=== PATIENT | female | born 1935 | race Caucasian/White ===

== ENCOUNTER 2021-03-26 07:13 | Observation (INO) | payer MEDICARE ==
[2021-03-26 07:50] VITALS: BMI 19.7
[2021-03-26] MEDS ORDERED: Acetaminophen 325 MG TAB PO PRN (07:54)
[2021-03-26] MEDS: Enoxaparin Sodium 30 MG/0.3 ML SYRINGE SC SCH (09:08)
[2021-03-26] MEDS: Famotidine 20 MG TAB PO SCH (09:10)
[2021-03-26 09:12] LABS: Troponin I Less than 0.010 ng/mL (< 0.028)
[2021-03-26 11:24] LABS: Troponin I Less than 0.010 ng/mL (< 0.028)
[2021-03-26] MEDS: Lisinopril 10 MG TAB PO SCH (20:44)
[2021-03-27 04:25] LABS: #Basophils 0.1 10x3/uL (0.0-0.2); #Eosinphils 0.3 10x3/uL (0.0-0.5); #Monocytes 0.8 10x3/uL (0.0-1.1); #Neutrophils 5.5 10x3/uL (1.5-8.4); %Basophils 0.8 % (0.0-2.0); %Eosinophils 2.7 % (0.0-6.0); %Lymphocytes 26.5 % (18.0-47.0); %Neutrophils 60.8 % (40.0-75.0); Hemoglobin 12.4 g/dL (12.0-15.5); Mean Corpuscular Hemoglobin 29.6 pg (27.0-33.0); Mean Corpuscular Volume 89.7 fl (81.6-98.3); Mean Platelet Volume 10.1 fl (7.4-10.4); Platelet Count 200 10x3/uL (150-450); RBC Distribution Width 12.2 % (11.5-14.5); Red Blood Cell (RBC) Count 4.19 10x6/uL (3.90-5.03); White Blood Cell (WBC) Count 9.1 10x3/uL (3.5-10.5)
[2021-03-27 04:40] LABS: Anion Gap 10 mmol/L (10-20); BUN (Urea Nitrogen) 18 mg/dL (9.8-20.1); Calc. Creatinine Clearance 36 mL/min (70-130); Calcium 8.5 mg/dL (7.8-10.44); Carbon Dioxide 26 mmol/L (23-31); Chloride 110 mmol/L (98-107); Glucose 92 mg/dL (83-110); Potassium 3.9 mmol/L (3.5-5.1); Sodium 142 mmol/L (136-145)
[2021-03-27] MEDS ORDERED: Levothyroxine Sodium 50 MCG TAB PO SCH (06:00)
[2021-03-27] MEDS: Enoxaparin Sodium 30 MG/0.3 ML SYRINGE SC SCH (08:30)
[2021-03-27] MEDS: Lisinopril 10 MG TAB PO SCH (08:30)
[2021-03-27] MEDS: Famotidine 20 MG TAB PO SCH (08:30)
[2021-03-27] MEDS ORDERED: Hydrochlorothiazide 25 MG TAB PO SCH (09:00)
[2021-03-27] MEDS ORDERED: Losartan 25 MG TAB PO SCH (09:00)
[2021-03-27] MEDS ORDERED: [UNRECOGNIZED DRUG - OTHER] PO SCH (09:00)
[2021-03-27] MEDS ORDERED: Aspirin 325 mg Enteric Coated Tablet PO SCH (09:00)
[2021-03-27] MEDS ORDERED: Atorvastatin Calcium 10 MG TAB PO SCH (09:00)
[2021-03-27] MEDS ORDERED: GLUCOSAMINE PO SCH (09:00)
[2021-03-27] MEDS ORDERED: Multivit, Therapeutic 1 TAB PO SCH (09:00)
[2021-03-27 15:13] VITALS: BP 103/55; TEMP 97.5
== END 2021-03-27 15:30 | disposition home or self-care (01) ==
LOC: CSHTELE 07:13
PROVIDERS: ADMIT Family Medicine; ATTEND Internal Medicine
DX: R07.89 Other chest pain (principal); I10 Essential (primary) hypertension; E03.9 Hypothyroidism, unspecified; E78.5 Hyperlipidemia, unspecified; I69.951 Hemiplegia and hemiparesis following unspecified cerebrovascular disease affecting right dominant side; Z79.899 Other long term (current) drug therapy; Z79.82 Long term (current) use of aspirin; Z90.49 Acquired absence of other specified parts of digestive tract
CPT/HCPCS: 80048; 84484; 85025; 93005; 93306; 96372 ×2; 97110; 97116 ×2; 97139; G0378 ×2; 36415; 93010; J1650

== ENCOUNTER 2021-08-29 14:19 | Inpatient (IN) | payer MEDICARE ==
[~2021-08-29 14:19] MED LIST: Iopamidol 300 61% 100 ML VIAL FS ONE
[2021-08-29] MEDS ORDERED: Ondansetron PF 4 MG/2 ML Vial ONE (14:45)
[2021-08-29 15:07] LABS: #Eosinphils 0.1 10x3/uL (0.0-0.5); #Monocytes 1.3 10x3/uL (0.0-1.1); #Neutrophils 11.4 10x3/uL (1.5-8.4); %Basophils 0.2 % (0.0-2.0); %Eosinophils 0.4 % (0.0-6.0); %Lymphocytes 9.6 % (18.0-47.0); %Monocytes 9.3 % (0.0-10.0); %Neutrophils 80.1 % (40.0-75.0); Mean Corpuscular HGB CONC 32.7 g/dL (32.0-36.0); Mean Corpuscular Hemoglobin 29.5 pg (27.0-33.0); Mean Corpuscular Volume 90.1 fl (81.6-98.3); Mean Platelet Volume 9.8 fl (7.4-10.4); Platelet Count 462 10x3/uL (150-450); RBC Distribution Width 12.8 % (11.5-14.5); Red Blood Cell (RBC) Count 4.75 10x6/uL (3.90-5.03); White Blood Cell (WBC) Count 14.2 10x3/uL (3.5-10.5)
[2021-08-29 15:14] LABS: INR-International Normal Ratio 1.1; PTT 25.3 sec (22.0-33.0); Prothrombin Time 12.1 sec (9.5-12.1)
[2021-08-29 15:17] LABS: ALT (SGPT) 13 U/L (8-55); AST (SGOT) 26 U/L (5-34); Albumin 3.8 g/dL (3.4-4.8); Alkaline Phosphatase 102 U/L (40-110); Anion Gap 17 mmol/L (10-20); BUN (Urea Nitrogen) 24 mg/dL (9.8-20.1); Bilirubin, Total 0.7 mg/dL (0.2-1.2); Calc. Creatinine Clearance 0 mL/min (70-130); Calcium 10.1 mg/dL (7.8-10.44); Carbon Dioxide 26 mmol/L (23-31); Chloride 100 mmol/L (98-107); Globulin 3.8 g/dL (2.4-3.5); Glucose 115 mg/dL (83-110); Lipase 40 U/L (8-78); Protein, Total 7.6 g/dL (5.8-8.1); Sodium 139 mmol/L (136-145)
[2021-08-29 15:37] LABS: CKMB 1.7 ng/mL (0-6.6)
[2021-08-29 17:57] LABS: Bilirubin Neg (Negative); Blood, Urine Negative (Negative); Clarity Clear (Clear); Glucose, Urine (Dipstick) Normal (Negative); Ketone, Urine 15 mg/dL (Negative); Leukocyte Negative (Negative); Nitrite Negative (Negative); Protein, Urine (Dipstick) 15 mg/dl (Neg-Trace)
[2021-08-29] MEDS ORDERED: Aspirin Chewable 81 MG TAB ONE (19:21)
[2021-08-29] MEDS ORDERED: Acetaminophen 650 MG Suppository PR PRN (21:18)
[2021-08-29] MEDS ORDERED: Bisacodyl 10 MG SUPP PR PRN (21:18)
[2021-08-29] MEDS ORDERED: Ondansetron PF 4 MG/2 ML Vial IVP PRN (21:18)
[2021-08-29] MEDS ORDERED: Famotidine/PF 20 mg/2ml Vial SLOW IVP SCH (22:45)
[2021-08-29] MEDS ORDERED: Fluconazole In NaCl,Iso-Osm 200 MG in Premix Bag 1 BAG IVPB SCH (22:45)
[2021-08-29] MEDS: Dextrose 5%-Lactated Ringers 1,000 ML IV SCH (23:09)
[2021-08-30 05:16] LABS: #Basophils 0.1 10x3/uL (0.0-0.2); #Eosinphils 0.1 10x3/uL (0.0-0.5); #Neutrophils 8.9 10x3/uL (1.5-8.4); %Basophils 0.5 % (0.0-2.0); %Eosinophils 0.8 % (0.0-6.0); %Lymphocytes 9.6 % (18.0-47.0); %Monocytes 9.1 % (0.0-10.0); %Neutrophils 79.6 % (40.0-75.0); Hemoglobin 12.6 g/dL (12.0-15.5); Mean Corpuscular HGB CONC 33.8 g/dL (32.0-36.0); Mean Corpuscular Hemoglobin 29.9 pg (27.0-33.0); Mean Corpuscular Volume 88.4 fl (81.6-98.3); Mean Platelet Volume 9.5 fl (7.4-10.4); Platelet Count 384 10x3/uL (150-450); RBC Distribution Width 12.8 % (11.5-14.5); Red Blood Cell (RBC) Count 4.22 10x6/uL (3.90-5.03); White Blood Cell (WBC) Count 11.2 10x3/uL (3.5-10.5)
[2021-08-30 05:31] LABS: ALT (SGPT) 11 U/L (8-55); AST (SGOT) 18 U/L (5-34); Alkaline Phosphatase 82 U/L (40-110); Anion Gap 14 mmol/L (10-20); BUN (Urea Nitrogen) 12 mg/dL (9.8-20.1); Bilirubin, Total 0.7 mg/dL (0.2-1.2); Calc. Creatinine Clearance 42 mL/min (70-130); Calcium 8.8 mg/dL (7.8-10.44); Carbon Dioxide 27 mmol/L (23-31); Chloride 105 mmol/L (98-107); Glucose 132 mg/dL (83-110); Potassium 3.2 mmol/L (3.5-5.1); Sodium 143 mmol/L (136-145)
[2021-08-30] MEDS ORDERED: Aspirin 81 mg Enteric Coated Tablet PO SCH (09:00)
[2021-08-30] MEDS ORDERED: Potassium Chloride 10 MEQ in Premix Bag 1 BAG IVPB SCH ×2 (09:00→09:15)
[2021-08-30] MEDS ORDERED: Iopamidol 300 61% 100 ML VIAL FS ONE (09:42)
[2021-08-30] MEDS: Fluticasone Propionate Nasal Spray 16 gm Bottle NASAL SCH (10:33)
[2021-08-30] MEDS: Enoxaparin Sodium 40 MG/0.4 ML SYRINGE SC SCH (10:35)
[2021-08-30] MEDS: Dextrose 5%-Lactated Ringers 1,000 ML IV SCH (12:55)
[2021-08-30] MEDS: Metoprolol Tartrate 5 MG/5 ML VIAL IVP SCH ×2 (14:18→21:35)
[2021-08-30 14:24] LABS: Anion Gap 11 mmol/L (10-20); BUN (Urea Nitrogen) 8 mg/dL (9.8-20.1); Calc. Creatinine Clearance 43 mL/min (70-130); Calcium 8.8 mg/dL (7.8-10.44); Carbon Dioxide 29 mmol/L (23-31); Chloride 103 mmol/L (98-107); Glucose 126 mg/dL (83-110); Potassium 3.4 mmol/L (3.5-5.1); Sodium 140 mmol/L (136-145)
[2021-08-30 15:54] LABS: SARS-CoV-2 PCR by NAA Not Detected (NotDetected)
[2021-08-30] MEDS ORDERED: Piperacillin/Tazobactam 3.375 GM in Sodium Chloride 0.9% 100 ML IVPB SCH ×2 (19:45→20:00)
[2021-08-30] MEDS ORDERED: Famotidine/PF 20 mg/2ml Vial SLOW IVP SCH (21:00)
[2021-08-30] MEDS: Pantoprazole 40 MG VIAL IVP SCH (21:35)
[2021-08-31] MEDS: Piperacillin/Tazobactam 3.375 GM in Sodium Chloride 0.9% 100 ML IVPB SCH ×3 (01:21→18:22)
[2021-08-31 05:41] LABS: Anion Gap 15 mmol/L (10-20); BUN (Urea Nitrogen) 6 mg/dL (9.8-20.1); Calc. Creatinine Clearance 45 mL/min (70-130); Calcium 8.5 mg/dL (7.8-10.44); Carbon Dioxide 27 mmol/L (23-31); Chloride 101 mmol/L (98-107); Glucose 100 mg/dL (83-110); Potassium 3.1 mmol/L (3.5-5.1); Sodium 140 mmol/L (136-145)
[2021-08-31 06:02] LABS: #Basophils 0.1 10x3/uL (0.0-0.2); #Eosinphils 0.3 10x3/uL (0.0-0.5); #Monocytes 0.7 10x3/uL (0.0-1.1); #Neutrophils 6.1 10x3/uL (1.5-8.4); %Basophils 0.7 % (0.0-2.0); %Eosinophils 3.8 % (0.0-6.0); %Lymphocytes 13.5 % (18.0-47.0); %Monocytes 8.4 % (0.0-10.0); Hemoglobin 12.1 g/dL (12.0-15.5); Mean Corpuscular HGB CONC 33.6 g/dL (32.0-36.0); Mean Corpuscular Hemoglobin 29.3 pg (27.0-33.0); Mean Corpuscular Volume 87.2 fl (81.6-98.3); Mean Platelet Volume 9.7 fl (7.4-10.4); Platelet Count 375 10x3/uL (150-450); RBC Distribution Width 12.5 % (11.5-14.5); Red Blood Cell (RBC) Count 4.13 10x6/uL (3.90-5.03); White Blood Cell (WBC) Count 8.4 10x3/uL (3.5-10.5)
[2021-08-31] MEDS: Enoxaparin Sodium 40 MG/0.4 ML SYRINGE SC SCH (10:28)
[2021-08-31] MEDS: Fluticasone Propionate Nasal Spray 16 gm Bottle NASAL SCH (10:28)
[2021-08-31] MEDS: Fluconazole In NaCl,Iso-Osm 100 MG in Premix Bag 1 BAG IVPB SCH (10:34)
[2021-08-31] MEDS: Pantoprazole 40 MG VIAL IVP SCH ×2 (10:39→20:52)
[2021-08-31] MEDS: Metoprolol Tartrate 5 MG/5 ML VIAL IVP SCH ×2 (10:39→20:52)
[2021-09-01] MEDS: Piperacillin/Tazobactam 3.375 GM in Sodium Chloride 0.9% 100 ML IVPB SCH ×4 (00:04→23:49)
[2021-09-01 05:35] LABS: #Basophils 0.1 10x3/uL (0.0-0.2); #Eosinphils 0.3 10x3/uL (0.0-0.5); #Monocytes 0.6 10x3/uL (0.0-1.1); #Neutrophils 4.4 10x3/uL (1.5-8.4); %Basophils 1.2 % (0.0-2.0); %Eosinophils 4.5 % (0.0-6.0); %Lymphocytes 20.1 % (18.0-47.0); %Monocytes 8.2 % (0.0-10.0); %Neutrophils 65.4 % (40.0-75.0); Hemoglobin 12.5 g/dL (12.0-15.5); Mean Corpuscular HGB CONC 34.1 g/dL (32.0-36.0); Mean Corpuscular Hemoglobin 29.6 pg (27.0-33.0); Mean Corpuscular Volume 86.8 fl (81.6-98.3); Mean Platelet Volume 9.4 fl (7.4-10.4); Platelet Count 346 10x3/uL (150-450); RBC Distribution Width 12.5 % (11.5-14.5); Red Blood Cell (RBC) Count 4.23 10x6/uL (3.90-5.03); White Blood Cell (WBC) Count 6.7 10x3/uL (3.5-10.5)
[2021-09-01 05:47] LABS: Anion Gap 15 mmol/L (10-20); BUN (Urea Nitrogen) 5 mg/dL (9.8-20.1); Calc. Creatinine Clearance 42 mL/min (70-130); Calcium 8.7 mg/dL (7.8-10.44); Carbon Dioxide 27 mmol/L (23-31); Chloride 103 mmol/L (98-107); Glucose 83 mg/dL (83-110); Sodium 142 mmol/L (136-145)
[2021-09-01] MEDS: Fluticasone Propionate Nasal Spray 16 gm Bottle NASAL SCH (08:08)
[2021-09-01] MEDS: Enoxaparin Sodium 40 MG/0.4 ML SYRINGE SC SCH (08:11)
[2021-09-01] MEDS: Pantoprazole 40 MG VIAL IVP SCH ×2 (08:15→20:42)
[2021-09-01] MEDS: Metoprolol Tartrate 5 MG/5 ML VIAL IVP SCH ×2 (08:15→20:42)
[2021-09-01] MEDS: Fluconazole In NaCl,Iso-Osm 100 MG in Premix Bag 1 BAG IVPB SCH (08:29)
[2021-09-02] MEDS ORDERED: Potassium Chloride 20 MEQ in Premix Bag 1 BAG IVPB SCH ×2 (08:15→17:00)
[2021-09-02] MEDS ORDERED: Potassium Chloride 10 MEQ in Premix Bag 1 BAG IVPB SCH (08:30)
[2021-09-02] MEDS: Fluconazole In NaCl,Iso-Osm 100 MG in Premix Bag 1 BAG IVPB SCH (08:51)
[2021-09-02] MEDS: Enoxaparin Sodium 40 MG/0.4 ML SYRINGE SC SCH (09:02)
[2021-09-02] MEDS: Pantoprazole 40 MG VIAL IVP SCH ×2 (09:02→20:26)
[2021-09-02] MEDS: Fluticasone Propionate Nasal Spray 16 gm Bottle NASAL SCH (09:03)
[2021-09-02] MEDS: Metoprolol Tartrate 5 MG/5 ML VIAL IVP SCH ×2 (09:03→20:25)
[2021-09-02] MEDS: Piperacillin/Tazobactam 3.375 GM in Sodium Chloride 0.9% 100 ML IVPB SCH ×2 (10:44→18:20)
[2021-09-02] MEDS ORDERED: Aspirin 325 mg Enteric Coated Tablet PO SCH (15:30)
[2021-09-02] MEDS ORDERED: Multivit, Therapeutic 1 TAB PO SCH (15:45)
[2021-09-02] MEDS ORDERED: Atorvastatin Calcium 10 MG TAB PO SCH (15:45)
[2021-09-02] MEDS ORDERED: Levothyroxine Sodium 50 MCG TAB PO SCH (15:45)
[2021-09-02 16:47] LABS: Bilirubin Neg (Negative); Blood, Urine Negative (Negative); Clarity Clear (Clear); Glucose, Urine (Dipstick) Normal (Negative); Ketone, Urine 15 mg/dL (Negative); Leukocyte Negative (Negative); Nitrite Negative (Negative); Protein, Urine (Dipstick) Negative (Neg-Trace); Urobilinogen Normal mg/dL (Less than 2)
[2021-09-02 17:07] LABS: RBC/HPF 0-3 HPF (0-3); Squamous Epithelial None Seen HPF (0-3); WBC/HPF None Seen HPF (0-3)
[2021-09-02 17:08] LABS: Bacteria/HPF Rare-Few HPF (None Seen)
[2021-09-02] MEDS: Multivit, Therapeutic 1 TAB PO SCH (17:12)
[2021-09-02] MEDS: Lisinopril 10 MG TAB PO SCH (20:25)
[2021-09-03] MEDS ORDERED: Piperacillin/Tazobactam 3.375 GM VIAL ONE (02:03)
[2021-09-03] MEDS ORDERED: Sodium Chloride 0.9% 100 ML ONE (02:03)
[2021-09-03] MEDS: Piperacillin/Tazobactam 3.375 GM in Sodium Chloride 0.9% 100 ML IVPB SCH ×4 (02:09→23:55)
[2021-09-03 05:33] LABS: Anion Gap 14 mmol/L (10-20); BUN (Urea Nitrogen) Less than 4 mg/dL (9.8-20.1); Calc. Creatinine Clearance 41 mL/min (70-130); Calcium 8.5 mg/dL (7.8-10.44); Carbon Dioxide 28 mmol/L (23-31); Chloride 104 mmol/L (98-107); Glucose 91 mg/dL (83-110); Sodium 143 mmol/L (136-145)
[2021-09-03 05:38] LABS: Potassium 2.9 mmol/L (3.5-5.1)
[2021-09-03 05:41] LABS: #Basophils 0.1 10x3/uL (0.0-0.2); #Eosinphils 0.4 10x3/uL (0.0-0.5); #Monocytes 0.7 10x3/uL (0.0-1.1); #Neutrophils 4.8 10x3/uL (1.5-8.4); %Basophils 0.7 % (0.0-2.0); %Eosinophils 4.9 % (0.0-6.0); %Monocytes 8.7 % (0.0-10.0); %Neutrophils 62.9 % (40.0-75.0); Hemoglobin 12.4 g/dL (12.0-15.5); Mean Corpuscular HGB CONC 33.8 g/dL (32.0-36.0); Mean Corpuscular Hemoglobin 29.2 pg (27.0-33.0); Mean Corpuscular Volume 86.4 fl (81.6-98.3); Mean Platelet Volume 9.5 fl (7.4-10.4); Platelet Count 341 10x3/uL (150-450); RBC Distribution Width 12.7 % (11.5-14.5); Red Blood Cell (RBC) Count 4.25 10x6/uL (3.90-5.03); White Blood Cell (WBC) Count 7.6 10x3/uL (3.5-10.5)
[2021-09-03] MEDS: Levothyroxine Sodium 50 MCG TAB PO SCH (06:25)
[2021-09-03] MEDS ORDERED: Potassium Chloride 20 MEQ in Premix Bag 1 BAG IVPB SCH (08:00)
[2021-09-03] MEDS ORDERED: [UNRECOGNIZED DRUG - OTHER] PO SCH (09:00)
[2021-09-03] MEDS: Atorvastatin Calcium 10 MG TAB PO SCH (09:15)
[2021-09-03] MEDS: Aspirin 325 mg Enteric Coated Tablet PO SCH (09:15)
[2021-09-03] MEDS: Metoprolol Tartrate 5 MG/5 ML VIAL IVP SCH ×2 (09:16→21:07)
[2021-09-03] MEDS: Fluticasone Propionate Nasal Spray 16 gm Bottle NASAL SCH (09:16)
[2021-09-03] MEDS: Multivit, Therapeutic 1 TAB PO SCH (09:16)
[2021-09-03] MEDS: Pantoprazole 40 MG VIAL IVP SCH ×2 (09:17→21:07)
[2021-09-03] MEDS: Lisinopril 10 MG TAB PO SCH ×2 (09:17→21:06)
[2021-09-03] MEDS: Enoxaparin Sodium 40 MG/0.4 ML SYRINGE SC SCH (09:17)
[2021-09-03] MEDS: Fluconazole In NaCl,Iso-Osm 100 MG in Premix Bag 1 BAG IVPB SCH (09:18)
[2021-09-03] MEDS: Potassium Chloride 20 MEQ in Premix Bag 1 BAG IVPB SCH ×2 (11:11→13:03)
[2021-09-04] MEDS: Levothyroxine Sodium 50 MCG TAB PO SCH (05:02)
[2021-09-04 05:24] LABS: #Basophils 0.1 10x3/uL (0.0-0.2); #Eosinphils 0.3 10x3/uL (0.0-0.5); #Monocytes 0.6 10x3/uL (0.0-1.1); #Neutrophils 6.9 10x3/uL (1.5-8.4); %Basophils 0.8 % (0.0-2.0); %Lymphocytes 16.2 % (18.0-47.0); %Monocytes 6.8 % (0.0-10.0); %Neutrophils 72.5 % (40.0-75.0); Hemoglobin 13.2 g/dL (12.0-15.5); Mean Corpuscular HGB CONC 33.6 g/dL (32.0-36.0); Mean Corpuscular Hemoglobin 29.2 pg (27.0-33.0); Mean Corpuscular Volume 86.9 fl (81.6-98.3); Mean Platelet Volume 9.4 fl (7.4-10.4); Platelet Count 314 10x3/uL (150-450); Red Blood Cell (RBC) Count 4.52 10x6/uL (3.90-5.03); White Blood Cell (WBC) Count 9.5 10x3/uL (3.5-10.5)
[2021-09-04 05:51] LABS: Anion Gap 16 mmol/L (10-20); BUN (Urea Nitrogen) Less than 4 mg/dL (9.8-20.1); Calc. Creatinine Clearance 35 mL/min (70-130); Calcium 8.8 mg/dL (7.8-10.44); Carbon Dioxide 25 mmol/L (23-31); Chloride 103 mmol/L (98-107); Glucose 80 mg/dL (83-110); Potassium 3.3 mmol/L (3.5-5.1); Sodium 141 mmol/L (136-145)
[2021-09-04] MEDS: Piperacillin/Tazobactam 3.375 GM in Sodium Chloride 0.9% 100 ML IVPB SCH ×3 (09:12→23:38)
[2021-09-04] MEDS: Atorvastatin Calcium 10 MG TAB PO SCH (09:17)
[2021-09-04] MEDS: Lisinopril 10 MG TAB PO SCH ×2 (09:17→20:53)
[2021-09-04] MEDS: Enoxaparin Sodium 40 MG/0.4 ML SYRINGE SC SCH (09:17)
[2021-09-04] MEDS: Pantoprazole 40 MG VIAL IVP SCH ×2 (09:17→20:53)
[2021-09-04] MEDS: Multivit, Therapeutic 1 TAB PO SCH (09:17)
[2021-09-04] MEDS: Metoprolol Tartrate 5 MG/5 ML VIAL IVP SCH (09:17)
[2021-09-04] MEDS: Aspirin 325 mg Enteric Coated Tablet PO SCH (09:17)
[2021-09-04] MEDS: Fluconazole In NaCl,Iso-Osm 100 MG in Premix Bag 1 BAG IVPB SCH (10:06)
[2021-09-04] MEDS: Fluticasone Propionate Nasal Spray 16 gm Bottle NASAL SCH (10:07)
[2021-09-04] MEDS: Metoprolol Tartrate 25 MG TAB PO SCH (20:53)
[2021-09-05 03:48] LABS: #Basophils 0.1 10x3/uL (0.0-0.2); #Eosinphils 0.4 10x3/uL (0.0-0.5); #Monocytes 0.7 10x3/uL (0.0-1.1); #Neutrophils 5.2 10x3/uL (1.5-8.4); %Basophils 0.9 % (0.0-2.0); %Lymphocytes 20.4 % (18.0-47.0); %Monocytes 8.2 % (0.0-10.0); %Neutrophils 64.5 % (40.0-75.0); Hemoglobin 12.5 g/dL (12.0-15.5); Mean Corpuscular HGB CONC 33.2 g/dL (32.0-36.0); Mean Corpuscular Hemoglobin 28.5 pg (27.0-33.0); Mean Corpuscular Volume 85.9 fl (81.6-98.3); Mean Platelet Volume 9.3 fl (7.4-10.4); Platelet Count 287 10x3/uL (150-450); Red Blood Cell (RBC) Count 4.39 10x6/uL (3.90-5.03); White Blood Cell (WBC) Count 8.1 10x3/uL (3.5-10.5)
[2021-09-05 03:57] LABS: Anion Gap 14 mmol/L (10-20); BUN (Urea Nitrogen) Less than 4 mg/dL (9.8-20.1); Calc. Creatinine Clearance 37 mL/min (70-130); Calcium 8.6 mg/dL (7.8-10.44); Carbon Dioxide 26 mmol/L (23-31); Chloride 105 mmol/L (98-107); Glucose 96 mg/dL (83-110); Sodium 142 mmol/L (136-145)
[2021-09-05 04:07] LABS: Potassium 2.6 mmol/L (3.5-5.1)
[2021-09-05] MEDS: Levothyroxine Sodium 50 MCG TAB PO SCH (05:44)
[2021-09-05] MEDS ORDERED: Potassium Chloride 20 MEQ TAB PO SCH (05:45)
[2021-09-05] MEDS: Fluconazole In NaCl,Iso-Osm 100 MG in Premix Bag 1 BAG IVPB SCH (09:00)
[2021-09-05] MEDS: Piperacillin/Tazobactam 3.375 GM in Sodium Chloride 0.9% 100 ML IVPB SCH ×3 (09:00→23:56)
[2021-09-05] MEDS: Enoxaparin Sodium 30 MG/0.3 ML SYRINGE SC SCH (09:00)
[2021-09-05] MEDS: Pantoprazole 40 MG VIAL IVP SCH ×2 (09:00→21:35)
[2021-09-05] MEDS: Metoprolol Tartrate 25 MG TAB PO SCH ×2 (09:01→21:35)
[2021-09-05] MEDS: Aspirin 325 mg Enteric Coated Tablet PO SCH (09:01)
[2021-09-05] MEDS: Multivit, Therapeutic 1 TAB PO SCH (09:01)
[2021-09-05] MEDS: Lisinopril 10 MG TAB PO SCH ×2 (09:01→21:34)
[2021-09-05] MEDS: Atorvastatin Calcium 10 MG TAB PO SCH (09:01)
[2021-09-05] MEDS: Fluticasone Propionate Nasal Spray 16 gm Bottle NASAL SCH (13:23)
[2021-09-05] MEDS: Potassium Chloride 20 MEQ TAB PO SCH ×2 (13:24→17:24)
[2021-09-06 04:35] LABS: #Basophils 0.1 10x3/uL (0.0-0.2); #Eosinphils 0.4 10x3/uL (0.0-0.5); #Monocytes 0.7 10x3/uL (0.0-1.1); #Neutrophils 4.6 10x3/uL (1.5-8.4); %Basophils 0.9 % (0.0-2.0); %Eosinophils 4.4 % (0.0-6.0); %Lymphocytes 27.2 % (18.0-47.0); %Monocytes 8.6 % (0.0-10.0); %Neutrophils 58.3 % (40.0-75.0); Hemoglobin 12.4 g/dL (12.0-15.5); Mean Corpuscular HGB CONC 33.8 g/dL (32.0-36.0); Mean Corpuscular Hemoglobin 29.3 pg (27.0-33.0); Mean Corpuscular Volume 86.8 fl (81.6-98.3); Mean Platelet Volume 9.9 fl (7.4-10.4); Platelet Count 294 10x3/uL (150-450); RBC Distribution Width 13.3 % (11.5-14.5); Red Blood Cell (RBC) Count 4.23 10x6/uL (3.90-5.03); White Blood Cell (WBC) Count 7.9 10x3/uL (3.5-10.5)
[2021-09-06 04:52] LABS: Anion Gap 15 mmol/L (10-20); BUN (Urea Nitrogen) Less than 4 mg/dL (9.8-20.1); Calc. Creatinine Clearance 37 mL/min (70-130); Calcium 8.7 mg/dL (7.8-10.44); Carbon Dioxide 24 mmol/L (23-31); Chloride 108 mmol/L (98-107); Glucose 90 mg/dL (83-110); Potassium 3.9 mmol/L (3.5-5.1); Sodium 143 mmol/L (136-145)
[2021-09-06] MEDS: Levothyroxine Sodium 50 MCG TAB PO SCH (05:05)
[2021-09-06] MEDS: Enoxaparin Sodium 30 MG/0.3 ML SYRINGE SC SCH (10:11)
[2021-09-06] MEDS: Piperacillin/Tazobactam 3.375 GM in Sodium Chloride 0.9% 100 ML IVPB SCH ×2 (10:11→17:34)
[2021-09-06] MEDS: Aspirin 325 mg Enteric Coated Tablet PO SCH (10:12)
[2021-09-06] MEDS: Multivit, Therapeutic 1 TAB PO SCH (10:12)
[2021-09-06] MEDS: Lisinopril 10 MG TAB PO SCH ×2 (10:12→21:33)
[2021-09-06] MEDS: Atorvastatin Calcium 10 MG TAB PO SCH (10:12)
[2021-09-06] MEDS: Metoprolol Tartrate 25 MG TAB PO SCH ×2 (10:12→21:34)
[2021-09-06] MEDS: Pantoprazole 40 MG VIAL IVP SCH ×2 (10:13→21:33)
[2021-09-06] MEDS: Fluticasone Propionate Nasal Spray 16 gm Bottle NASAL SCH (11:10)
[2021-09-06] MEDS: Fluconazole In NaCl,Iso-Osm 100 MG in Premix Bag 1 BAG IVPB SCH (11:11)
[2021-09-07] MEDS: Piperacillin/Tazobactam 3.375 GM in Sodium Chloride 0.9% 100 ML IVPB SCH ×3 (01:00→15:46)
[2021-09-07 04:33] LABS: Anion Gap 13 mmol/L (10-20); BUN (Urea Nitrogen) 4 mg/dL (9.8-20.1); Calc. Creatinine Clearance 38 mL/min (70-130); Calcium 8.6 mg/dL (7.8-10.44); Carbon Dioxide 24 mmol/L (23-31); Chloride 108 mmol/L (98-107); Glucose 90 mg/dL (83-110); Potassium 3.3 mmol/L (3.5-5.1); Sodium 142 mmol/L (136-145)
[2021-09-07 05:27] LABS: #Basophils 0.1 10x3/uL (0.0-0.2); #Eosinphils 0.3 10x3/uL (0.0-0.5); #Monocytes 0.8 10x3/uL (0.0-1.1); #Neutrophils 4.4 10x3/uL (1.5-8.4); %Basophils 1.1 % (0.0-2.0); %Lymphocytes 28.1 % (18.0-47.0); %Monocytes 9.6 % (0.0-10.0); %Neutrophils 56.6 % (40.0-75.0); Hemoglobin 12.2 g/dL (12.0-15.5); Mean Corpuscular HGB CONC 32.6 g/dL (32.0-36.0); Mean Corpuscular Hemoglobin 29.3 pg (27.0-33.0); Mean Corpuscular Volume 89.7 fl (81.6-98.3); Mean Platelet Volume 10.3 fl (7.4-10.4); Platelet Count 262 10x3/uL (150-450); RBC Distribution Width 13.5 % (11.5-14.5); Red Blood Cell (RBC) Count 4.17 10x6/uL (3.90-5.03); White Blood Cell (WBC) Count 7.8 10x3/uL (3.5-10.5)
[2021-09-07] MEDS: Levothyroxine Sodium 50 MCG TAB PO SCH (06:30)
[2021-09-07 07:52] VITALS: BMI 17.0
[2021-09-07] MEDS: Metoprolol Tartrate 25 MG TAB PO SCH (10:42)
[2021-09-07] MEDS: Fluticasone Propionate Nasal Spray 16 gm Bottle NASAL SCH (10:42)
[2021-09-07] MEDS: Multivit, Therapeutic 1 TAB PO SCH (10:42)
[2021-09-07] MEDS: Enoxaparin Sodium 30 MG/0.3 ML SYRINGE SC SCH (10:43)
[2021-09-07] MEDS: Aspirin 325 mg Enteric Coated Tablet PO SCH (10:43)
[2021-09-07] MEDS: Pantoprazole 40 MG VIAL IVP SCH (10:43)
[2021-09-07] MEDS: Lisinopril 10 MG TAB PO SCH (10:43)
[2021-09-07] MEDS: Atorvastatin Calcium 10 MG TAB PO SCH (10:43)
[2021-09-07] MEDS: Fluconazole In NaCl,Iso-Osm 100 MG in Premix Bag 1 BAG IVPB SCH (10:44)
[2021-09-07 12:36] LABS: SARS-CoV-2 PCR by NAA Not Detected (NotDetected)
[2021-09-07 17:31] VITALS: BP 125/73; TEMP 97.8
== END 2021-09-07 17:37 | DRG 919 ==
LOC: CSHERS 14:19 → CSHTELE 22:05 → UNDOADMIN 22:24
PROVIDERS: ADMIT Student in an Organized Health Care Education/Training Program; ATTEND Internal Medicine
PROC: 0CJS8ZZ Inspection of Larynx, Via Natural or Artificial Opening Endoscopic (ICD-10-PCS; principal; 2021-08-30)
DX: T85.79XA Infection and inflammatory reaction due to other internal prosthetic devices, implants and grafts, initial encounter (principal); E43 Unspecified severe protein-calorie malnutrition; L02.11 Cutaneous abscess of neck; I69.351 Hemiplegia and hemiparesis following cerebral infarction affecting right dominant side; J05.10 Acute epiglottitis without obstruction; Z68.1 Body mass index [BMI] 19.9 or less, adult; J39.1 Other abscess of pharynx; C15.4 Malignant neoplasm of middle third of esophagus; R13.12 Dysphagia, oropharyngeal phase; Z20.822 Contact with and (suspected) exposure to COVID-19; Z66 Do not resuscitate; I10 Essential (primary) hypertension; E03.9 Hypothyroidism, unspecified; E78.2 Mixed hyperlipidemia; R79.89 Other specified abnormal findings of blood chemistry; E87.6 Hypokalemia; E78.00 Pure hypercholesterolemia, unspecified; K20.80 Other esophagitis without bleeding; E86.0 Dehydration; Z79.82 Long term (current) use of aspirin; Y83.8 Other surgical procedures as the cause of abnormal reaction of the patient, or of later complication, without mention of misadventure at the time of the procedure; Z79.890 Hormone replacement therapy; Z79.899 Other long term (current) drug therapy; Z86.718 Personal history of other venous thrombosis and embolism; Z90.49 Acquired absence of other specified parts of digestive tract; Z90.710 Acquired absence of both cervix and uterus; Z82.49 Family history of ischemic heart disease and other diseases of the circulatory system; Z87.440 Personal history of urinary (tract) infections
CPT/HCPCS: 36415; 70491; 74177; 74230; 80048; 80053; 81001; 81003; 82553; 83605; 83690; 84443; 84484; 85025; 85610; 85730; 87086; 87324; 87449; 93005; 93306; 96374; C9113; J1450; J1650; J2405; J2543; J3480; J3490; Q9967; S0028; U0003; U0005